=== PATIENT | female | born 1990 | race Caucasian/White ===

== ENCOUNTER 2021-01-08 22:34 | Emergency (ER) | payer BC ==
[~2021-01-08] VITALS: Ht 170.2 cm; Wt 86.6 kg
[2021-01-09 00:02] LABS: CLARITY URINE CLOUDY (CLEAR); COLOR URINE YELLOW (YELLOW); KETONES URINE NEGATIVE (NEGATIVE); LEUKOCYTE ESTERASE URINE 2+ (NEGATIVE); NITRITE URINE NEGATIVE (NEGATIVE); OCCULT BLOOD URINE 3+ (NEGATIVE); PH URINE 6.5 (4.5-8.0); PROTEIN URINE NEGATIVE (NEGATIVE); SPECIFIC GRAVITY URINE 1.002 (1.005-1.030); UROBILINOGEN URINE 0.2 E.U./dL (0.2-1.0)
[2021-01-09] MEDS ORDERED: CEPHALEXIN 250MG CAPSULE PO ONE (00:45)
[2021-01-09] MEDS ORDERED: IBUPROFEN 600MG TABLET PO ONE (00:45)
[2021-01-09] MEDS ORDERED: CEPH500C2 MT (00:57)
[2021-01-09 01:11] VITALS: BP 130/84
== END 2021-01-09 01:12 | disposition home or self-care (01) ==
LOC: ER 22:34
DX: N39.0 Urinary tract infection, site not specified (principal)
CPT/HCPCS: 81003; 81025; 87077; 87186; 99283